=== PATIENT | male | born 1985 | race Two or more races ===

== ENCOUNTER 2019-10-30 00:03 | Emergency (ER) | payer MEDICAID, OTHER ==
[~2019-10-30] VITALS: Ht 182.9 cm; Wt 105.0 kg
[2019-10-30 00:09] VITALS: BP 153/106
--- NOTE | 2019-10-30 02:01 | NUR ---
Pt d/c'd to home care. Pt alert, oriented and ambulatory. NAD. Pt educated on home care, RX, OTC meds and follow-up. Pt VU. Pt ambulatory out of ER.
== END 2019-10-30 02:04 | disposition home or self-care (01) ==
LOC: ED 01:58
DX: R07.89 Other chest pain (principal); H60.502 Unspecified acute noninfective otitis externa, left ear; R00.2 Palpitations
CPT/HCPCS: 71046; 93005; 99283; 99284

== ENCOUNTER 2020-01-01 10:05 | Emergency (ER) | payer MEDICAID ==
[~2020-01-01] VITALS: Ht 182.9 cm; Wt 105.0 kg
--- NOTE | 2020-01-01 10:18 | NUR ---
NA X 1
[2020-01-01 10:23] VITALS: BP 134/92
== END 2020-01-01 11:41 | disposition home or self-care (01) ==
LOC: ED 11:22
DX: H60.91 Unspecified otitis externa, right ear (principal); G43.909 Migraine, unspecified, not intractable, without status migrainosus; H53.149 Visual discomfort, unspecified
CPT/HCPCS: 99283

== ENCOUNTER 2020-01-05 06:33 | Emergency (ER) | payer MEDICAID ==
[~2020-01-05] VITALS: Ht 182.9 cm; Wt 106.7 kg
[2020-01-05 06:40] VITALS: BP 148/110
--- NOTE | 2020-01-05 06:50 | NUR ---
INTERACTIVE ART DIRECTOR: EDDY CALLED AT THIS TIME. PER DISPATCH THEY WILL SEND SOMEONE LIAT.
--- NOTE | 2020-01-05 06:50 | NUR ---
PT VERY AGITATED WHILE STAFF ATTEMPTING TO OBTAIN PIV ACCESS & REMOVE CLOTHING, REQUIRED FREQ REDIRECTION & REASSURANCE, PT AOX4, DENIES DISCOMFORT, MOM WAITING IN LOBBY, DR KEBEDE AT , AWAITING RAD.
--- NOTE | 2020-01-05 07:08 | NUR ---
PT TRANSFERRED TO [facility]
== END 2020-01-05 07:13 | disposition short-term general hospital (02) ==
LOC: ED 07:01
DX: S31.102A Unspecified open wound of abdominal wall, epigastric region without penetration into peritoneal cavity, initial encounter (principal); W34.09XA Accidental discharge from other specified firearms, initial encounter; Y93.89 Activity, other specified; Y92.89 Other specified places as the place of occurrence of the external cause; Y99.8 Other external cause status
CPT/HCPCS: 36556; 71045; 74018; 99291

== ENCOUNTER 2020-01-29 04:33 | Emergency (ER) | payer MEDICAID ==
[~2020-01-29] VITALS: Ht 182.9 cm; Wt 109.0 kg
[2020-01-29 04:38] VITALS: BP 144/99
== END 2020-01-29 06:23 | disposition home or self-care (01) ==
LOC: ED 05:45
DX: G43.009 Migraine without aura, not intractable, without status migrainosus (principal); H53.149 Visual discomfort, unspecified; F17.210 Nicotine dependence, cigarettes, uncomplicated
CPT/HCPCS: 70450; 99284; 99406